=== PATIENT | female | born 1975 | race Caucasian/White ===

== ENCOUNTER 2024-09-13 07:16 | Day surgery (SDC) | payer BC ==
[~2024-09-13 07:16] MED LIST: Sodium Chloride 0.9% 10 ML Syringe FLUSH PRN; Sodium Chloride 0.9% 10 ML Syringe FLUSH SCH
[2024-09-13] MEDS: Lactated Ringers 1,000 ML IV SCH (07:30)
[2024-09-13] MEDS ORDERED: Propofol 200 MG/20 ML SDV ONE ×3 (08:04→08:25)
[2024-09-13] MEDS ORDERED: Ondansetron 4 MG/2 ML SDV ONE (08:04)
[2024-09-13] MEDS ORDERED: Ondansetron 4 MG/2 ML SDV IVPUSH PRN (08:06)
[2024-09-13] MEDS ORDERED: HYDROmorphone 0.5 MG/0.5 ML Syringe IVPUSH PRN (08:06)
[2024-09-13] MEDS ORDERED: fentaNYL 100 MCG/2 ML SDV IVPUSH PRN (08:06)
[2024-09-13 10:46] VITALS: BP 108/70; PULSE 66
== END 2024-09-13 09:45 | disposition home or self-care (01) ==
LOC: JD.SDS 07:16
PROVIDERS: ATTEND Surgery
DX: Z12.11 Encounter for screening for malignant neoplasm of colon (principal); K64.0 First degree hemorrhoids; F41.9 Anxiety disorder, unspecified; Z87.891 Personal history of nicotine dependence; Z79.899 Other long term (current) drug therapy
CPT/HCPCS: 45378; J2405; J2704; J7120